=== PATIENT | female | born 1945 | race Caucasian/White ===

== ENCOUNTER 2019-04-02 14:20 | Emergency (ER) | payer MEDICARE, BC ==
[~2019-04-02 14:20] MED LIST: AMOXICILLIN875 MG PO; ATIVAN0.5 MG PO; CYMBALTA60 MG; FETZIMA40 MG PO; LAMICTAL100 MG PO; LAMOTRIGINE100 MG PO; LEVOTHYROXINE PO; METOPROLOL SUCC50 M1 PO; PRILOSEC10 MG PO; TRICOR 48MG48 MG; XANAX0.25 MG
[2019-04-02] MEDS ORDERED: METFOMIN HYDRO850 MG PO (14:32)
[2019-04-02] MEDS ORDERED: ZOLMITRIPTAN PO (14:32)
[2019-04-02] MEDS ORDERED: JANUVIA 100MG100 MG (14:32)
[2019-04-02] MEDS ORDERED: PIOGLITAZONE HC30 MG PO (14:32)
[2019-04-02 15:50] LABS: HEMOGLOBIN 14.2 g/dL (12.5-16.0); MEAN CELL VOLUME 97 fl (78-100); MEAN CORPUSCULAR HEMOGLOBIN 31 pg (27-31); MEAN CORPUSCULAR HGB CONC 32 g/dL (33-37); MEAN PLATELET VOLUME 8.7 fl (7.4-10.4); PLATELET COUNT 352 K/mm3 (130-400); RED BLOOD COUNT 4.64 M/mm3 (4.10-5.30); RED CELL DISTRIBUTION WIDTH 13.4 % (11.5-14.5); WHITE BLOOD COUNT 8.6 K/mm3 (4.8-10.8)
[2019-04-02 16:01] LABS: ALBUMIN 4.5 g/dL (3.4-4.8)
[2019-04-02 16:03] LABS: CALCIUM 9.7 mg/dL (8.3-10.5)
[2019-04-02 16:04] LABS: TOTAL PROTEIN 7.5 g/dL (6.2-8.1)
[2019-04-02 16:06] LABS: TOTAL BILIRUBIN 0.6 mg/dL (0.2-1.2)
[2019-04-02 16:22] LABS: URINE APPEARANCE HAZY; URINE BILIRUBIN NEGATIVE (NEGATIVE); URINE BLOOD TRACE (NEGATIVE); URINE COLOR YELLOW; URINE KETONE 1+ (NEGATIVE); URINE LEUKOCYTE ESTERASE NEGATIVE (NEGATIVE); URINE NITRATE NEGATIVE (NEGATIVE); URINE PROTEIN(semi-quant) 2+ mg/dL (NEGATIVE); URINE UROBILINOGEN NORMAL (NORMAL)
[2019-04-02 16:56] LABS: LYMPHOCYTE 7 % (20-51); MONOCYTE 2 % (3-10); NEUTROPHILS 91 % (42-75)
[2019-04-02 17:58] VITALS: BP 183/89
== END 2019-04-02 17:55 | disposition home or self-care (01) ==
LOC: ED 14:20
PROVIDERS: Nurse Practitioner Family
DX: F41.1 Generalized anxiety disorder (principal); F31.9 Bipolar disorder, unspecified; G43.909 Migraine, unspecified, not intractable, without status migrainosus; R11.2 Nausea with vomiting, unspecified; F60.3 Borderline personality disorder; E11.9 Type 2 diabetes mellitus without complications; I10 Essential (primary) hypertension; Z79.84 Long term (current) use of oral hypoglycemic drugs

== ENCOUNTER 2020-04-15 16:47 | Emergency (ER) | payer MEDICARE, BC ==
[~2020-04-15 16:47] MED LIST changes: +JANUVIA 100MG100 MG; +METFOMIN HYDRO850 MG PO; +PIOGLITAZONE HC30 MG PO; +ZOLMITRIPTAN PO
[2020-04-15] MEDS ORDERED: LORAZEPAM0.5 M1 PO (18:46)
[2020-04-15] MEDS ORDERED: DULOXETINE60 MG PO (18:48)
[2020-04-15 18:51] VITALS: BP 157/102
== END 2020-04-15 20:20 | disposition home or self-care (01) ==
LOC: ED 16:47
DX: I10 Essential (primary) hypertension (principal); R73.09 Other abnormal glucose